=== PATIENT | male | born 1955 | race Caucasian/White ===

== ENCOUNTER → 2020-10-11 | Outpatient (CLI) | payer MEDICARE ==
[~2020-10-11] MED LIST: CIALIS5 MG PO; IBUPROFEN200 MG PO; LIPITOR TAB 2020 MG PO; NEXIUM40 MG PO; PERCOCET 10-321 EACH PO
== END ==
LOC: EMI 10:00
DX: M75.102 Unspecified rotator cuff tear or rupture of left shoulder, not specified as traumatic (principal); M75.52 Bursitis of left shoulder
CPT/HCPCS: 73221